=== PATIENT | female | born 1980 | race African-American/Black ===

== ENCOUNTER 2018-04-03 01:51 | Emergency (ER) | payer SELFPAY ==
[~2018-04-03] VITALS: Ht 193 cm; Wt 129.0 kg
[2018-04-03] MEDS ORDERED: BACITRACIN ZINC OINT UDPKT TOP ONE (03:15)
[2018-04-03] MEDS ORDERED: LIDOCAINE HCL 1% 20ML VIAL (Pyxis) INJ MC ONE (03:15)
[2018-04-03] MEDS ORDERED: LIDOCAINE HCL/PF 1% 10 MG/ML 5ML VIAL IJ SCH (03:37)
[2018-04-03 05:12] VITALS: BP 141/89
== END 2018-04-03 06:38 | disposition home or self-care (01) ==
LOC: ER 01:51
DX: O99.713 Diseases of the skin and subcutaneous tissue complicating pregnancy, third trimester (principal); L02.214 Cutaneous abscess of groin; Z87.891 Personal history of nicotine dependence; Z3A.38 38 weeks gestation of pregnancy
CPT/HCPCS: 10060; 99283; J3490; Z7610